=== PATIENT | female | born 1940 | race Caucasian/White ===

== ENCOUNTER 2020-03-05 19:26 | Inpatient (IN) ==
[2020-03-05 20:00] LABS: Mean Platelet Volume 13.6 fL (9.4-12.4)
[2020-03-05 20:02] LABS: Hematocrit 41.2 % (35.3-44.9); Hemoglobin 13.8 g/dL (11.5-15.4); Mean Corpuscular HGB Conc 33.5 g/dL (31.6-35.5); Mean Corpuscular Hemoglobin 30.7 pg (28.0-33.3); Mean Corpuscular Volume 91.6 fL (83.0-100.0); Red Blood Count 4.5 M/mcL (3.82-4.97); Red Cell Distribution Width 14.4 % (11.5-14.5); White Blood Count 18.7 K/mcL (4.3-11.1)
[2020-03-05 20:18] LABS: Calcium 8.6 mg/dL (8.6-10.3); Potassium 3.3 mEq/L (3.5-5.1)
[2020-03-05 20:30] LABS: Bacteria,Urine Many per hpf (None-Few); Bilirubin,Urine Negative (Negative); Blood,Urine Small (Negative); Clarity,Urine Ex.Turbid (Clear); Color,Urine Yellow (Yellow); Glucose,Urine (UA) Normal (Normal); Hyaline Casts,Urine Few per lpf (None Seen); Ketones,Urine Negative (Negative); Leukocyte Esterase,Urine Large (Negative); Mucus,Urine Few per lpf (None-Few); Nitrite,Urine Negative (Negative); Protein,Urine 30 mg/dL (Neg-Trace); Specific Gravity,Urine 1.016 (1.010-1.025); Squamous Epithelial Cell,Urine Moderate per hpf (None-Few); WBC,Urine TNTC per hpf (0-3)
[2020-03-05] MEDS ORDERED: 0.9 % Sodium Chloride 1,000 ML IVC ONE (21:23)
[2020-03-05] MEDS ORDERED: cefTRIAXone 2,000 MG in 0.9 % Sodium Chloride Mini Bag 100 ML IVPB ONE (21:24)
[2020-03-05] MEDS ORDERED: Aspirin 325 MG TABLET PO ONE (21:24)
[2020-03-05] MEDS ORDERED: Ondansetron 4 MG/2 ML VIAL IVP PRN (22:27)
[2020-03-05] MEDS ORDERED: Naloxone 0.4 MG/ML INJ IVP PRN (22:27)
[2020-03-05] MEDS ORDERED: Dextrose Gel 15 GM/37.5 ML TUBE PO PRN ×2 (23:00)
[2020-03-05] MEDS ORDERED: D5% in Water 1,000 ML IVC PRN (23:00)
[2020-03-05] MEDS ORDERED: *HR* Dextrose 50 % in Water (Vial) 50 ML VIAL IVP PRN (23:00)
[2020-03-05] MEDS: 0.9 % Sodium Chloride 1,000 ML IVC SCH (23:38)
[2020-03-05] MEDS: Insulin LISPRO 300 UNITS/3 ML VIAL SQ SCH (23:41)
[2020-03-06] MEDS ORDERED: Perflutren Lipid Microsphere 1.3 ML in 0.9 % Sodium Chloride 8.7 ML IVP PRN (01:40)
[2020-03-06 02:53] LABS: INR 1.3; Prothrombin Time 14.6 Seconds (9.4-12.1)
[2020-03-06 02:55] LABS: Eosinophils % 0.1 %; Red Cell Distribution Width 14.6 % (11.5-14.5)
[2020-03-06 02:57] LABS: Basophils % 0.2 %; Hematocrit 40.8 % (35.3-44.9); Hemoglobin 13.6 g/dL (11.5-15.4); Immature Granulocytes % 0.8 % (0-4); Immature Platelets 13.2 % (1.1-6.1); Lymphocytes # 1.7 K/mcL (0.6-4.6); Lymphocytes % 9.4 %; Mean Corpuscular HGB Conc 33.3 g/dL (31.6-35.5); Mean Corpuscular Hemoglobin 31.3 pg (28.0-33.3); Monocytes # 0.4 K/mcL (0.0-1.3); Monocytes % 2.3 %; Red Blood Count 4.34 M/mcL (3.82-4.97); Segmented Neutrophils % 87.2 %; White Blood Count 18.4 K/mcL (4.3-11.1)
[2020-03-06 03:10] LABS: Platelet Count 79 K/mcL (140-400)
[2020-03-06 03:11] LABS: Bilirubin,Total 2.4 mg/dL (0.3-1.0); Calcium 8.3 mg/dL (8.6-10.3); Chol/HDL Ratio 5.4 (0-4.9); Globulin 3.1 g/dL (2.4-3.5); Magnesium 1.4 mg/dL (1.6-2.6); Phosphorous 3.2 mg/dL (2.7-4.5); Potassium 3.5 mEq/L (3.5-5.1); Total Protein 6.1 g/dL (6.4-8.9)
[2020-03-06] MEDS ORDERED: *HR* Heparin 5,000 UNIT/ML VIAL IVP ONE (04:05)
[2020-03-06] MEDS ORDERED: *HR* Heparin 5,000 UNIT/ML VIAL IVP PRN ×2 (04:05)
[2020-03-06] MEDS ORDERED: Heparin 25,000UNIT/250ML 1/2NS 25,000 UNIT/250 ML IV.SOLN IVC SCH (04:15)
[2020-03-06 05:19] LABS: INR 1.3; Prothrombin Time 14.6 Seconds (9.4-12.1)
[2020-03-06 05:20] LABS: Heparin anti-factor XA UFH < 0.04 IU/mL (0.30-0.70)
[2020-03-06 07:49] LABS: Hemoglobin 13.3 g/dL (11.5-15.4); Red Cell Distribution Width 14.7 % (11.5-14.5)
[2020-03-06 07:50] LABS: Hematocrit 39.3 % (35.3-44.9); Immature Platelets 17.4 % (1.1-6.1); Mean Corpuscular HGB Conc 33.8 g/dL (31.6-35.5); Mean Corpuscular Volume 91.6 fL (83.0-100.0); Red Blood Count 4.29 M/mcL (3.82-4.97); White Blood Count 22.6 K/mcL (4.3-11.1)
[2020-03-06 07:52] LABS: Platelet Count 60 K/mcL (140-400)
[2020-03-06] MEDS: cefTRIAXone 1,000 MG in 0.9 % Sodium Chloride Mini Bag 100 ML IVPB SCH (09:01)
[2020-03-06] MEDS: Acetaminophen 325 MG TABLET PO PRN ×3 (09:08→22:39)
[2020-03-06] MEDS: Insulin LISPRO 300 UNITS/3 ML VIAL SQ SCH ×3 (09:08→16:27)
[2020-03-06 09:16] LABS: Acinetobacter baumannii by PCR Not Detected (Not Detect); Candida albicans by PCR Not Detected (Not Detect); Candida glabrata by PCR Not Detected (Not Detect); Candida krusei by PCR Not Detected (Not Detect); Candida parapsilosis by PCR Not Detected (Not Detect); Candida tropicalis by PCR Not Detected (Not Detect); Enterobacter cloacae Cmplx PCR Not Detected (Not Detect); Enterococcus by PCR Not Detected (Not Detect); Escherichia coli by PCR DETECTED (Not Detect); Klebsiella oxytoca by PCR Not Detected (Not Detect); Klebsiella pneumoniae by PCR Not Detected (Not Detect); Proteus by PCR Not Detected (Not Detect); Pseudomonas aeruginosa by PCR Not Detected (Not Detect); Serratia marcescens by PCR Not Detected (Not Detect); Staphylococcus aureus by PCR Not Detected (Not Detect); Staphylococcus by PCR Not Detected (Not Detect); Streptococcus agalactiae(B)PCR Not Detected (Not Detect); Streptococcus by PCR Not Detected (Not Detect); Streptococcus pneumoniae PCR Not Detected (Not Detect); Streptococcus pyogenes (A) PCR Not Detected (Not Detect); blaKPC Carbapenem-Resist Gene Not Detected (Not Detect)
[2020-03-06 12:36] LABS: Hepatitis B Surface Antigen Nonreactive (Nonreactive)
[2020-03-06 13:04] LABS: Hepatitis B Core IgM Nonreactive (Nonreactive)
[2020-03-06 13:05] LABS: Hepatitis A Antibody IgM Nonreactive (Nonreactive); Hepatitis C Virus Antibody Nonreactive (Nonreactive)
[2020-03-06] MEDS: 0.9 % Sodium Chloride 1,000 ML IVC SCH (15:45)
[2020-03-07] MEDS: Acetaminophen 325 MG TABLET PO PRN ×3 (05:32→19:49)
[2020-03-07 06:56] LABS: Hematocrit 38.2 % (35.3-44.9); Hemoglobin 12.6 g/dL (11.5-15.4); Immature Platelets 12.4 % (1.1-6.1); Mean Corpuscular Hemoglobin 31.4 pg (28.0-33.3); Mean Corpuscular Volume 95.3 fL (83.0-100.0); Mean Platelet Volume 13.4 fL (9.4-12.4); Red Blood Count 4.01 M/mcL (3.82-4.97); Red Cell Distribution Width 14.8 % (11.5-14.5); White Blood Count 9.3 K/mcL (4.3-11.1)
[2020-03-07 07:12] LABS: Albumin 2.5 g/dL (3.5-5.7); Albumin/Globulin Ratio 0.9 (1.1-2.2); Bilirubin,Total 1.7 mg/dL (0.3-1.0); Calcium 7.9 mg/dL (8.6-10.3); Globulin 2.8 g/dL (2.4-3.5); Potassium 3.5 mEq/L (3.5-5.1); Total Protein 5.3 g/dL (6.4-8.9)
[2020-03-07] MEDS: cefTRIAXone 1,000 MG in 0.9 % Sodium Chloride Mini Bag 100 ML IVPB SCH (08:33)
[2020-03-07] MEDS: Insulin LISPRO 300 UNITS/3 ML VIAL SQ SCH ×3 (08:49→16:31)
[2020-03-07] MEDS ORDERED: *HR* Metoprolol 5 MG/5 ML VIAL IVP ONE (20:45)
[2020-03-08 03:22] LABS: Hemoglobin 13.3 g/dL (11.5-15.4); Mean Corpuscular Volume 95.3 fL (83.0-100.0); Red Cell Distribution Width 14.8 % (11.5-14.5)
[2020-03-08 03:24] LABS: Immature Platelets 9.8 % (1.1-6.1); Mean Corpuscular HGB Conc 32.4 g/dL (31.6-35.5); Mean Corpuscular Hemoglobin 30.9 pg (28.0-33.3); Mean Platelet Volume 13.5 fL (9.4-12.4); Red Blood Count 4.3 M/mcL (3.82-4.97); White Blood Count 7.8 K/mcL (4.3-11.1)
[2020-03-08] MEDS ORDERED: *HR* Metoprolol 5 MG/5 ML VIAL IVP ONE (03:35)
[2020-03-08] MEDS ORDERED: Acetaminophen IV 1,000 MG/100 ML INFUS..BTL IVPB ONE (03:36)
[2020-03-08 03:41] LABS: Albumin 2.7 g/dL (3.5-5.7); Albumin/Globulin Ratio 0.8 (1.1-2.2); Bilirubin,Total 1.8 mg/dL (0.3-1.0); Calcium 8.3 mg/dL (8.6-10.3); Globulin 3.3 g/dL (2.4-3.5); Potassium 3.8 mEq/L (3.5-5.1)
[2020-03-08] MEDS: Insulin LISPRO 300 UNITS/3 ML VIAL SQ SCH ×3 (07:31→16:47)
[2020-03-08] MEDS: cefTRIAXone 1,000 MG in 0.9 % Sodium Chloride Mini Bag 100 ML IVPB SCH (09:22)
[2020-03-08] MEDS ORDERED: Acetaminophen 325 MG TABLET PO ONE (15:35)
[2020-03-09] MEDS ORDERED: Acetaminophen 325 MG TABLET PO ONE (04:26)
[2020-03-09 04:51] LABS: Mean Corpuscular Hemoglobin 30.1 pg (28.0-33.3)
[2020-03-09 04:52] LABS: Hematocrit 37.9 % (35.3-44.9); Hemoglobin 12.3 g/dL (11.5-15.4); Immature Platelets 7.3 % (1.1-6.1); Mean Corpuscular HGB Conc 32.5 g/dL (31.6-35.5); Mean Corpuscular Volume 92.9 fL (83.0-100.0); Mean Platelet Volume 12.1 fL (9.4-12.4); Red Blood Count 4.08 M/mcL (3.82-4.97); Red Cell Distribution Width 14.7 % (11.5-14.5); White Blood Count 7.1 K/mcL (4.3-11.1)
[2020-03-09 05:11] LABS: Alanine Aminotransferase 23 Units/L (7-52); Albumin 2.4 g/dL (3.5-5.7); Albumin/Globulin Ratio 0.9 (1.1-2.2); Alkaline Phosphatase 146 Units/L (34-104); Aspartate Amino Transferase 44 Units/L (13-39); BUN/Creatinine Ratio 21 (6-26); Bilirubin,Total 1.3 mg/dL (0.3-1.0); Blood Urea Nitrogen 21 mg/dL (8-23); Calcium 7.7 mg/dL (8.6-10.3); Carbon Dioxide 20 mEq/L (23-29); Chloride 108 mEq/L (98-107); Globulin 2.6 g/dL (2.4-3.5); Glucose 123 mg/dL (70-105); Osmolality,Calculated 286 (280-300); Potassium 3.6 mEq/L (3.5-5.1); Sodium 136 mEq/L (136-145); eGFR For African Americans > 60 (> 60); eGFR For Non-African Americans 55 (> 60)
[2020-03-09] MEDS: Insulin LISPRO 300 UNITS/3 ML VIAL SQ SCH ×2 (09:22→12:09)
[2020-03-09] MEDS: cefTRIAXone 1,000 MG in 0.9 % Sodium Chloride Mini Bag 100 ML IVPB SCH (09:25)
[2020-03-09 11:43] VITALS: BP 139/72
== END 2020-03-09 14:25 | disposition home or self-care (01) | DRG 689 ==
LOC: 3BNU 19:26 → EMEROOARM 19:26 → SUATTDRO 21:45 → 3BNU 22:23
PROVIDERS: ADMIT Internal Medicine; ATTEND Nurse Practitioner Adult Health

== ENCOUNTER 2021-01-24 21:37 | Inpatient (IN) ==
[2021-01-24 22:38] LABS: Eosinophils % 0.1 %; Immature Granulocytes % 0.4 % (0-4); Segmented Neutrophils % 82.4 %
[2021-01-24 22:40] LABS: Bacteria,Urine Few per hpf (None-Few); Basophils # 0.1 K/mcL (0.0-0.2); Basophils % 0.5 %; Bilirubin,Urine Negative (Negative); Blood,Urine Small (Negative); Clarity,Urine Turbid (Clear); Color,Urine Yellow (Yellow); Glucose,Urine (UA) 50 mg/dL (Normal); Hemoglobin 12.4 g/dL (11.5-15.4); Immature Platelets 8.9 % (1.1-6.1); Ketones,Urine Negative (Negative); Leukocyte Esterase,Urine Large (Negative); Lymphocytes # 1.1 K/mcL (0.6-4.6); Lymphocytes % 11.2 %; Mean Corpuscular HGB Conc 32.6 g/dL (31.6-35.5); Monocytes # 0.5 K/mcL (0.0-1.3); Monocytes % 5.4 %; Mucus,Urine Few per lpf (None-Few); Nitrite,Urine Positive (Negative); Protein,Urine 30 mg/dL (Neg-Trace); Red Cell Distribution Width 14.4 % (11.5-14.5); Specific Gravity,Urine 1.019 (1.010-1.025); Squamous Epithelial Cell,Urine Few per hpf (None-Few); Urobilinogen,Urine Normal (Normal); WBC,Urine TNTC per hpf (0-3); White Blood Count 9.4 K/mcL (4.3-11.1)
[2021-01-24 22:41] LABS: Neutrophils # 7.8 K/mcL (1.6-8.9); Platelet Count 89 K/mcL (140-400)
[2021-01-24 22:46] LABS: INR 1.2; Prothrombin Time 14.3 Seconds (9.4-12.1)
[2021-01-24 22:48] LABS: Activated Partial Thrombo Time 29.8 Seconds (26.0-36.0)
[2021-01-24 23:05] LABS: Albumin 3.2 g/dL (3.5-5.7); Bilirubin,Direct 1.3 mg/dL (0.0-0.2); Bilirubin,Indirect 1.5 mg/dL (0.0-1.0); Bilirubin,Total 2.8 mg/dL (0.3-1.0); Calcium 8.9 mg/dL (8.6-10.3); Globulin 3.3 g/dL (2.4-3.5); Magnesium 1.4 mg/dL (1.6-2.6); Phosphorous 2.6 mg/dL (2.7-4.5); Potassium 3.8 mEq/L (3.5-5.1); Total Protein 6.5 g/dL (6.4-8.9); Troponin I 0.03 ng/mL (< 0.04)
[2021-01-24] MEDS ORDERED: Vancomycin 1,750 MG/517.5 ML IV.SOLN IVPB ONE (23:18)
[2021-01-24] MEDS ORDERED: Piperacillin/Tazobactam 3.375 GM in 0.9 % Sodium Chloride Mini Bag 100 ML IVPB ONE (23:19)
[2021-01-24] MEDS ORDERED: 0.9 % Sodium Chloride 1,000 ML IVC ONE (23:26)
[2021-01-25] MEDS ORDERED: 0.9 % Sodium Chloride 1,000 ML IVC SCH (03:00)
[2021-01-25] MEDS ORDERED: Acetaminophen IV 1,000 MG/100 ML BAG IVPB SCH (03:03)
[2021-01-25] MEDS ORDERED: *HR* Dextrose 50 % in Water (Vial) 50 ML VIAL IVP PRN (03:10)
[2021-01-25] MEDS ORDERED: D5% in Water 1,000 ML IVC PRN (03:10)
[2021-01-25] MEDS ORDERED: Dextrose Gel 15 GM/37.5 ML TUBE PO PRN ×2 (03:10)
[2021-01-25] MEDS ORDERED: Naloxone 0.4 MG/ML INJ IVP PRN (03:11)
[2021-01-25] MEDS ORDERED: Ondansetron 4 MG/2 ML VIAL IVP PRN (03:11)
[2021-01-25] MEDS: Melatonin 3 MG TABLET PO SCH ×2 (04:51→21:25)
[2021-01-25] MEDS ORDERED: cefTRIAXone 1,000 MG in 0.9 % Sodium Chloride Mini Bag 100 ML IVPB SCH (06:00)
[2021-01-25 06:08] LABS: Hematocrit 40.5 % (35.3-44.9); Hemoglobin 12.9 g/dL (11.5-15.4); Immature Platelets 9.4 % (1.1-6.1); Mean Corpuscular HGB Conc 31.9 g/dL (31.6-35.5); Mean Corpuscular Hemoglobin 30.8 pg (28.0-33.3); Mean Corpuscular Volume 96.7 fL (83.0-100.0); Mean Platelet Volume 12.8 fL (9.4-12.4); Red Blood Count 4.19 M/mcL (3.82-4.97); Red Cell Distribution Width 14.5 % (11.5-14.5); White Blood Count 13.7 K/mcL (4.3-11.1)
[2021-01-25 06:42] LABS: Calcium 8.6 mg/dL (8.6-10.3); Chol/HDL Ratio 3.9 (0-4.9); Potassium 3.6 mEq/L (3.5-5.1)
[2021-01-25] MEDS ORDERED: Aspirin 325 MG TABLET PO ONE (07:27)
[2021-01-25] MEDS: amLODIPine 5 MG TABLET PO SCH (07:33)
[2021-01-25] MEDS: Magnesium Oxide 400 MG TABLET PO SCH ×2 (07:34→21:25)
[2021-01-25] MEDS: Insulin LISPRO 300 UNITS/3 ML VIAL SUBQ SCH ×4 (07:37→21:24)
[2021-01-25] MEDS: Fluticasone Propionate Nasal 50 MCG/SPRAY BOTTLE NS SCH (07:38)
[2021-01-25] MEDS ORDERED: hydroCHLOROthiazide 25 MG TABLET PO SCH (09:00)
[2021-01-25 09:36] LABS: Estimated Average Glucose 117 mg/dl; Hemoglobin A1C 5.7 %
[2021-01-25] MEDS ORDERED: *HR* Heparin 5,000 UNIT/ML VIAL IVP PRN ×2 (12:00)
[2021-01-25] MEDS ORDERED: *HR* Heparin 5,000 UNIT/ML VIAL IVP ONE (12:00)
[2021-01-25] MEDS: Heparin 25,000UNIT/250ML 1/2NS 25,000 UNIT/250 ML IV.SOLN IVC SCH (13:14)
[2021-01-25 13:31] LABS: Hematocrit 41.9 % (35.3-44.9); Hemoglobin 13.1 g/dL (11.5-15.4); Immature Platelets 8.8 % (1.1-6.1); Mean Corpuscular HGB Conc 31.3 g/dL (31.6-35.5); Mean Corpuscular Volume 99.1 fL (83.0-100.0); Mean Platelet Volume 13.2 fL (9.4-12.4); Red Blood Count 4.23 M/mcL (3.82-4.97); Red Cell Distribution Width 14.6 % (11.5-14.5); White Blood Count 11.3 K/mcL (4.3-11.1)
[2021-01-25 13:41] LABS: Heparin anti-factor XA UFH < 0.04 IU/mL (0.30-0.70)
[2021-01-25 13:42] LABS: INR 1.3; Prothrombin Time 14.4 Seconds (9.4-12.1)
[2021-01-25] MEDS: Acetaminophen 325 MG TABLET PO PRN (14:05)
[2021-01-25] MEDS ORDERED: Perflutren Lipid Microsphere 1.3 ML in 0.9 % Sodium Chloride 8.7 ML IVP PRN (15:13)
[2021-01-25 20:07] LABS: Acinetobacter baumannii by PCR Not Detected (Not Detect); Enterobacter cloacae Cmplx PCR Not Detected (Not Detect); Enterobacteriaceae by PCR Not Detected (Not Detect); Enterococcus by PCR Not Detected (Not Detect); Staphylococcus aureus by PCR Not Detected (Not Detect); Staphylococcus by PCR Not Detected (Not Detect); Streptococcus agalactiae(B)PCR Not Detected (Not Detect); Streptococcus by PCR Not Detected (Not Detect); Streptococcus pneumoniae PCR Not Detected (Not Detect); Streptococcus pyogenes (A) PCR Not Detected (Not Detect); mecA Methicillin-Resist Gene Not Detected (Not Detect); vanA/B Vancomycin-Resist Genes Not Detected (Not Detect)
[2021-01-25 20:08] LABS: Candida albicans by PCR Not Detected (Not Detect); Candida glabrata by PCR Not Detected (Not Detect); Candida krusei by PCR Not Detected (Not Detect); Candida parapsilosis by PCR Not Detected (Not Detect); Candida tropicalis by PCR Not Detected (Not Detect); Escherichia coli by PCR DETECTED (Not Detect); Klebsiella oxytoca by PCR Not Detected (Not Detect); Klebsiella pneumoniae by PCR Not Detected (Not Detect); Proteus by PCR Not Detected (Not Detect); Pseudomonas aeruginosa by PCR Not Detected (Not Detect); Serratia marcescens by PCR Not Detected (Not Detect)
[2021-01-25] MEDS ORDERED: NON-FORMULARY MEDICATION 1 EACH EACH (Melatonin 10 MG Tablet) PO SCH (21:00)
[2021-01-26 05:08] LABS: Hematocrit 35.2 % (35.3-44.9); Hemoglobin 11.5 g/dL (11.5-15.4); Immature Platelets 10.8 % (1.1-6.1); Mean Corpuscular HGB Conc 32.7 g/dL (31.6-35.5); Mean Corpuscular Hemoglobin 30.8 pg (28.0-33.3); Mean Corpuscular Volume 94.4 fL (83.0-100.0); Mean Platelet Volume 13.1 fL (9.4-12.4); Red Blood Count 3.73 M/mcL (3.82-4.97); Red Cell Distribution Width 14.4 % (11.5-14.5); White Blood Count 8.2 K/mcL (4.3-11.1)
[2021-01-26 05:18] LABS: Calcium 8.2 mg/dL (8.6-10.3); Potassium 3.8 mEq/L (3.5-5.1)
[2021-01-26] MEDS ORDERED: cefTRIAXone 2,000 MG in Water for inj. (sterile) 20 ML IVP SCH (08:00)
[2021-01-26 08:08] LABS: Troponin I 4.76 ng/mL (< 0.04)
[2021-01-26] MEDS ORDERED: Piperacillin/Tazobactam 4.5 GM in 0.9 % Sodium Chloride Mini Bag 100 ML IVPB ONE (08:19)
[2021-01-26] MEDS: Insulin LISPRO 300 UNITS/3 ML VIAL SUBQ SCH ×4 (08:29→21:44)
[2021-01-26] MEDS: Aspirin 81 MG TAB.CHEW PO SCH (08:36)
[2021-01-26] MEDS: amLODIPine 5 MG TABLET PO SCH (08:36)
[2021-01-26] MEDS: Fluticasone Propionate Nasal 50 MCG/SPRAY BOTTLE NS SCH (08:37)
[2021-01-26] MEDS ORDERED: cefTRIAXone 1,000 MG in 0.9 % Sodium Chloride Mini Bag 100 ML IVPB SCH (09:00)
[2021-01-26] MEDS: Piperacillin/Tazobactam 3.375 GM in 0.9 % Sodium Chloride Mini Bag 100 ML IVPB SCH ×3 (09:11→23:21)
[2021-01-26] MEDS: Heparin 25,000UNIT/250ML 1/2NS 25,000 UNIT/250 ML IV.SOLN IVC SCH (13:01)
[2021-01-26] MEDS ORDERED: Piperacillin/Tazobactam 3.375 GM in 0.9 % Sodium Chloride Mini Bag 100 ML IVPB SCH (16:00)
[2021-01-26] MEDS: Acetaminophen 325 MG TABLET PO PRN (16:09)
[2021-01-26] MEDS: Melatonin 3 MG TABLET PO SCH (21:48)
[2021-01-27] MEDS: Insulin LISPRO 300 UNITS/3 ML VIAL SUBQ SCH ×4 (07:45→20:37)
[2021-01-27] MEDS: amLODIPine 5 MG TABLET PO SCH (07:58)
[2021-01-27] MEDS: Aspirin 81 MG TAB.CHEW PO SCH (08:00)
[2021-01-27] MEDS: Piperacillin/Tazobactam 3.375 GM in 0.9 % Sodium Chloride Mini Bag 100 ML IVPB SCH ×2 (08:00→16:47)
[2021-01-27] MEDS: Fluticasone Propionate Nasal 50 MCG/SPRAY BOTTLE NS SCH (08:01)
[2021-01-27 10:04] LABS: Immature Granulocytes % 0.3 % (0-4); Red Cell Distribution Width 14.5 % (11.5-14.5)
[2021-01-27 10:06] LABS: Basophils # 0.1 K/mcL (0.0-0.2); Basophils % 0.9 %; Eosinophils # 0.1 K/mcL (0.0-0.6); Hematocrit 36.9 % (35.3-44.9); Hemoglobin 11.9 g/dL (11.5-15.4); Immature Platelets 12.1 % (1.1-6.1); Lymphocytes # 1.3 K/mcL (0.6-4.6); Lymphocytes % 19.3 %; Mean Corpuscular HGB Conc 32.2 g/dL (31.6-35.5); Mean Corpuscular Hemoglobin 30.7 pg (28.0-33.3); Mean Corpuscular Volume 95.1 fL (83.0-100.0); Mean Platelet Volume 13.5 fL (9.4-12.4); Monocytes # 0.9 K/mcL (0.0-1.3); Monocytes % 13.1 %; Neutrophils # 4.2 K/mcL (1.6-8.9); Red Blood Count 3.88 M/mcL (3.82-4.97); Segmented Neutrophils % 64.4 %; White Blood Count 6.5 K/mcL (4.3-11.1)
[2021-01-27 10:10] LABS: Platelet Count 81 K/mcL (140-400)
[2021-01-27 10:24] LABS: Calcium 8.1 mg/dL (8.6-10.3); Magnesium 1.6 mg/dL (1.6-2.6); Phosphorous 2.3 mg/dL (2.7-4.5); Potassium 3.7 mEq/L (3.5-5.1)
[2021-01-27 10:48] LABS: Platelet Estimate Decreased (Normal); Reactive Lymphocytes Present (Not Present)
[2021-01-27] MEDS: Heparin 25,000UNIT/250ML 1/2NS 25,000 UNIT/250 ML IV.SOLN IVC SCH (15:38)
[2021-01-27] MEDS: Calcium Gluconate 1gm/50mL 1 GM/50 ML BAG IVPB SCH ×2 (15:51→16:46)
[2021-01-27] MEDS: Melatonin 3 MG TABLET PO SCH (20:45)
[2021-01-28] MEDS: Piperacillin/Tazobactam 3.375 GM in 0.9 % Sodium Chloride Mini Bag 100 ML IVPB SCH ×2 (00:06→08:19)
[2021-01-28 01:17] LABS: Hemoglobin 10.9 g/dL (11.5-15.4)
[2021-01-28 01:19] LABS: Hematocrit 33.9 % (35.3-44.9); Immature Platelets 10.1 % (1.1-6.1); Mean Corpuscular HGB Conc 32.2 g/dL (31.6-35.5); Mean Corpuscular Hemoglobin 30.6 pg (28.0-33.3); Mean Corpuscular Volume 95.2 fL (83.0-100.0); Mean Platelet Volume 13.1 fL (9.4-12.4); Red Blood Count 3.56 M/mcL (3.82-4.97); Red Cell Distribution Width 14.6 % (11.5-14.5); White Blood Count 6.2 K/mcL (4.3-11.1)
[2021-01-28 01:47] LABS: Calcium 7.9 mg/dL (8.6-10.3); Phosphorous 3.5 mg/dL (2.7-4.5); Potassium 3.9 mEq/L (3.5-5.1)
[2021-01-28] MEDS: Insulin LISPRO 300 UNITS/3 ML VIAL SUBQ SCH ×4 (08:12→22:26)
[2021-01-28] MEDS: Calcium Gluconate 1gm/50mL 1 GM/50 ML BAG IVPB SCH ×2 (08:17→12:00)
[2021-01-28] MEDS: 0.9 % Sodium Chloride 1,000 ML IVC SCH (08:17)
[2021-01-28] MEDS: Aspirin 81 MG TAB.CHEW PO SCH (08:19)
[2021-01-28] MEDS: amLODIPine 5 MG TABLET PO SCH (08:20)
[2021-01-28] MEDS: Fluticasone Propionate Nasal 50 MCG/SPRAY BOTTLE NS SCH (08:21)
[2021-01-28] MEDS ORDERED: ISOVUE-370 200 ML INFUS..BTL ONE (11:59)
[2021-01-28] MEDS ORDERED: *HR* Heparin 10,000 UNIT/10 ML VIAL ONE (11:59)
[2021-01-28] MEDS ORDERED: Heparin 1,000 UNITS/500 mL 500 ML ONE (11:59)
[2021-01-28] MEDS ORDERED: Nitroglycerin 1,000 MCG/5 ML VIAL IV ONE (12:00)
[2021-01-28] MEDS ORDERED: 0.9 % Sodium Chloride 1,000 ML ONE (12:00)
[2021-01-28] MEDS ORDERED: *HR* FentaNYL (PF) 100 MCG/2 ML VIAL ONE (12:37)
[2021-01-28] MEDS ORDERED: *HR* Midazolam HCl 2 MG/2 ML VIAL ONE (12:38)
[2021-01-28] MEDS ORDERED: 0.9 % Sodium Chloride 1,000 ML IVC SCH (14:30)
[2021-01-28] MEDS: Heparin 25,000UNIT/250ML 1/2NS 25,000 UNIT/250 ML IV.SOLN IVC SCH (14:42)
[2021-01-28] MEDS ORDERED: levoFLOXacin 750 MG TABLET PO SCH (15:00)
[2021-01-28] MEDS: Melatonin 3 MG TABLET PO SCH (22:32)
[2021-01-28] MEDS: Lactobacillus 1 EACH CAP.SPRINK PO SCH (22:32)
[2021-01-29 01:26] LABS: Mean Corpuscular Volume 98.9 fL (83.0-100.0); Red Cell Distribution Width 14.9 % (11.5-14.5)
[2021-01-29 01:28] LABS: Hematocrit 36.9 % (35.3-44.9); Hemoglobin 11.4 g/dL (11.5-15.4); Immature Platelets 6.9 % (1.1-6.1); Mean Corpuscular HGB Conc 30.9 g/dL (31.6-35.5); Mean Corpuscular Hemoglobin 30.6 pg (28.0-33.3); Red Blood Count 3.73 M/mcL (3.82-4.97); White Blood Count 4.3 K/mcL (4.3-11.1)
[2021-01-29 01:46] LABS: Calcium 8.2 mg/dL (8.6-10.3); Magnesium 1.8 mg/dL (1.6-2.6); Phosphorous 3.5 mg/dL (2.7-4.5); Potassium 3.7 mEq/L (3.5-5.1)
[2021-01-29] MEDS ORDERED: Furosemide 40 MG TABLET PO SCH (09:00)
[2021-01-29] MEDS: Insulin LISPRO 300 UNITS/3 ML VIAL SUBQ SCH (09:08)
[2021-01-29] MEDS: 0.9 % Sodium Chloride 1,000 ML IVC SCH (09:08)
[2021-01-29] MEDS: Aspirin 81 MG TAB.CHEW PO SCH (09:09)
[2021-01-29] MEDS: Lactobacillus 1 EACH CAP.SPRINK PO SCH (09:09)
[2021-01-29] MEDS: amLODIPine 5 MG TABLET PO SCH (09:09)
[2021-01-29] MEDS: Fluticasone Propionate Nasal 50 MCG/SPRAY BOTTLE NS SCH (09:10)
[2021-01-29] MEDS: Calcium Gluconate 1gm/50mL 1 GM/50 ML BAG IVPB SCH ×2 (09:11→12:00)
[2021-01-29 09:27] VITALS: BP 128/60; PULSE 66; TEMP 97.7; O2SAT 97
== END 2021-01-29 14:19 | disposition home health service (06) | DRG 871 ==
LOC: 3ANU 21:37 → EMEROOARM 21:37 → SUATTDRO 01-25 02:25 → 3ANU 01-25 03:00 → SUATTDRO 01-26 22:40
PROVIDERS: ADMIT Student in an Organized Health Care Education/Training Program; ATTEND Internal Medicine

== ENCOUNTER 2022-02-09 14:32 | Inpatient (IN) ==
[2022-02-09 17:20] LABS: Basophils # 0.1 K/mcL (0.0-0.2); Basophils % 1.3 %; Eosinophils # 0.5 K/mcL (0.0-0.6); Eosinophils % 4.6 %; Hematocrit 39.3 % (35.3-44.9); Hemoglobin 12.8 g/dL (11.5-15.4); Immature Granulocytes % 0.3 % (0-4); Lymphocytes # 2.6 K/mcL (0.6-4.6); Mean Corpuscular HGB Conc 32.6 g/dL (31.6-35.5); Mean Corpuscular Hemoglobin 30.1 pg (28.0-33.3); Mean Corpuscular Volume 92.5 fL (83.0-100.0); Mean Platelet Volume 12.7 fL (9.4-12.4); Monocytes # 1.2 K/mcL (0.0-1.3); Monocytes % 11.7 %; Neutrophils # 5.9 K/mcL (1.6-8.9); Platelet Count 127 K/mcL (140-400); Red Blood Count 4.25 M/mcL (3.82-4.97); Red Cell Distribution Width 17.2 % (11.5-14.5); Segmented Neutrophils % 57.1 %; White Blood Count 10.3 K/mcL (4.3-11.1)
[2022-02-09 17:27] LABS: Amorphous Sediment,Urine Few per hpf (None-Few); Bacteria,Urine Few per hpf (None-Few); Bilirubin,Urine Negative (Negative); Blood,Urine Large (Negative); Clarity,Urine Turbid (Clear); Color,Urine Dark-Yellow (Yellow); Glucose,Urine (UA) Normal (Normal); Granular Casts,Urine Few per lpf (None Seen); Hyaline Casts,Urine Few per lpf (None Seen); Ketones,Urine Negative (Negative); Leukocyte Esterase,Urine Large (Negative); Mucus,Urine Few per lpf (None-Few); Nitrite,Urine Negative (Negative); Protein,Urine 100 mg/dL (Neg-Trace); RBC,Urine 30-50 per hpf (0-3); Renal Epithelial Cells,Urine Few per hpf (None-Few); Specific Gravity,Urine 1.024 (1.010-1.025); Squamous Epithelial Cell,Urine Few per hpf (None-Few); Transitional Epi Cells,Urine Few per hpf (None-Few); Urobilinogen,Urine Normal (Normal); WBC,Urine TNTC per hpf (0-3)
[2022-02-09 17:37] LABS: Calcium 9.4 mg/dL (8.6-10.3); Potassium 3.9 mEq/L (3.5-5.1)
[2022-02-09 17:57] LABS: Troponin I 0.05 ng/mL (< 0.04)
[2022-02-09] MEDS ORDERED: cefTRIAXone 1,000 MG in Water for inj. (sterile) 10 ML IVP ONE (18:17)
[2022-02-09] MEDS ORDERED: Melatonin 3 MG TABLET PO PRN (20:55)
[2022-02-09] MEDS ORDERED: Naloxone 0.4 MG/ML INJ IVP PRN (20:55)
[2022-02-09] MEDS ORDERED: D5% in Water 1,000 ML IVC PRN (21:52)
[2022-02-09] MEDS ORDERED: Dextrose Gel 15 GM/37.5 ML TUBE PO PRN ×2 (21:52)
[2022-02-09] MEDS ORDERED: *HR* Dextrose 50 % in Water (Syg) 50 ML SYRINGE IVP PRN (21:52)
[2022-02-09 22:36] LABS: Magnesium 1.5 mg/dL (1.6-2.6)
[2022-02-09 22:50] LABS: Thyroid Stimulating Hormone 3.996 mcIU/mL (0.340-5.600)
[2022-02-09] MEDS: Insulin LISPRO 300 UNITS/3 ML VIAL SUBQ SCH (23:57)
[2022-02-10 00:44] LABS: Sodium, Urine 64.6 mEq/L
[2022-02-10] MEDS: Ampicillin 1,000 MG in 0.9 % Sodium Chloride Mini Bag 100 ML IVPB SCH ×7 (01:44→23:12)
[2022-02-10 03:50] LABS: Basophils # 0.1 K/mcL (0.0-0.2); Basophils % 1.3 %; Eosinophils # 0.5 K/mcL (0.0-0.6); Eosinophils % 5.1 %; Hematocrit 37.5 % (35.3-44.9); Hemoglobin 12.2 g/dL (11.5-15.4); Immature Granulocytes % 0.2 % (0-4); Immature Platelets 7.6 % (1.1-6.1); Lymphocytes # 2.6 K/mcL (0.6-4.6); Lymphocytes % 27.7 %; Mean Corpuscular HGB Conc 32.5 g/dL (31.6-35.5); Mean Corpuscular Hemoglobin 29.9 pg (28.0-33.3); Mean Corpuscular Volume 91.9 fL (83.0-100.0); Mean Platelet Volume 13.3 fL (9.4-12.4); Monocytes # 0.8 K/mcL (0.0-1.3); Monocytes % 8.7 %; Neutrophils # 5.4 K/mcL (1.6-8.9); Platelet Count 111 K/mcL (140-400); Red Blood Count 4.08 M/mcL (3.82-4.97); Red Cell Distribution Width 16.9 % (11.5-14.5); White Blood Count 9.5 K/mcL (4.3-11.1)
[2022-02-10 04:04] LABS: Albumin 2.6 g/dL (3.5-5.7); Albumin/Globulin Ratio 0.7 (1.1-2.2); Bilirubin,Total 2.3 mg/dL (0.3-1.0); Calcium 9.3 mg/dL (8.6-10.3); Globulin 3.8 g/dL (2.4-3.5); Potassium 3.9 mEq/L (3.5-5.1); Total Protein 6.4 g/dL (6.4-8.9)
[2022-02-10] MEDS ORDERED: *HR* Heparin 5,000 UNIT/ML VIAL SQ SCH (06:00)
[2022-02-10] MEDS: Lactobacillus 1 EACH CAP.SPRINK PO SCH ×2 (08:47→20:29)
[2022-02-10] MEDS: Insulin LISPRO 300 UNITS/3 ML VIAL SUBQ SCH ×4 (08:47→20:29)
[2022-02-10] MEDS: Aspirin Enteric Coated 81 MG Tablet PO SCH (08:47)
[2022-02-10] MEDS: 0.9 % Sodium Chloride 1,000 ML IVC SCH ×2 (08:55→23:12)
[2022-02-10] MEDS ORDERED: Spironolactone 25 MG TABLET PO SCH (09:00)
[2022-02-10] MEDS ORDERED: *HR* Heparin 5,000 UNIT/ML VIAL IVP ONE (10:08)
[2022-02-10] MEDS ORDERED: *HR* Heparin 5,000 UNIT/ML VIAL IVP PRN ×2 (10:08)
[2022-02-10] MEDS: Heparin 25,000UNIT/250ML 1/2NS 25,000 UNIT/250 ML IV.SOLN IVC SCH (11:23)
[2022-02-10 11:34] LABS: Hematocrit 34.2 % (35.3-44.9); Hemoglobin 11.4 g/dL (11.5-15.4); Immature Platelets 6.8 % (1.1-6.1); Mean Corpuscular HGB Conc 33.3 g/dL (31.6-35.5); Mean Corpuscular Hemoglobin 30.5 pg (28.0-33.3); Mean Corpuscular Volume 91.4 fL (83.0-100.0); Mean Platelet Volume 12.5 fL (9.4-12.4); Red Blood Count 3.74 M/mcL (3.82-4.97); White Blood Count 7.5 K/mcL (4.3-11.1)
[2022-02-10 12:23] LABS: Heparin anti-factor XA UFH 0.88 IU/mL (0.30-0.70)
[2022-02-10 12:24] LABS: INR 1.5; Prothrombin Time 16.4 Seconds (9.4-12.1)
[2022-02-11 00:52] LABS: Red Blood Count 3.79 M/mcL (3.82-4.97)
[2022-02-11 00:53] LABS: Basophils # 0.1 K/mcL (0.0-0.2); Basophils % 1.2 %; Eosinophils # 0.6 K/mcL (0.0-0.6); Eosinophils % 6.9 %; Hematocrit 35.5 % (35.3-44.9); Hemoglobin 11.4 g/dL (11.5-15.4); Immature Granulocytes % 0.2 % (0-4); Immature Platelets 5.9 % (1.1-6.1); Lymphocytes # 2.4 K/mcL (0.6-4.6); Mean Corpuscular HGB Conc 32.1 g/dL (31.6-35.5); Mean Corpuscular Hemoglobin 30.1 pg (28.0-33.3); Mean Corpuscular Volume 93.7 fL (83.0-100.0); Mean Platelet Volume 12.9 fL (9.4-12.4); Monocytes % 10.8 %; Red Cell Distribution Width 17.2 % (11.5-14.5); Segmented Neutrophils % 54.9 %; White Blood Count 9.1 K/mcL (4.3-11.1)
[2022-02-11 01:03] LABS: Platelet Count 96 K/mcL (140-400)
[2022-02-11 01:09] LABS: Calcium 8.7 mg/dL (8.6-10.3); Potassium 3.9 mEq/L (3.5-5.1)
[2022-02-11 03:24] LABS: Estimated Average Glucose 114 mg/dl; Hemoglobin A1C 5.6 %
[2022-02-11] MEDS: Ampicillin 1,000 MG in 0.9 % Sodium Chloride Mini Bag 100 ML IVPB SCH ×5 (03:28→21:15)
[2022-02-11] MEDS: Lactobacillus 1 EACH CAP.SPRINK PO SCH ×2 (08:01→21:17)
[2022-02-11] MEDS: amLODIPine 5 MG TABLET PO SCH (08:01)
[2022-02-11] MEDS: Aspirin Enteric Coated 81 MG Tablet PO SCH (08:01)
[2022-02-11] MEDS: Insulin LISPRO 300 UNITS/3 ML VIAL SUBQ SCH ×4 (08:01→19:59)
[2022-02-11] MEDS: Heparin 25,000UNIT/250ML 1/2NS 25,000 UNIT/250 ML IV.SOLN IVC SCH (09:33)
[2022-02-11] MEDS: Apixaban 5 MG TABLET PO SCH ×2 (10:16→21:17)
[2022-02-11] MEDS: hydroCHLOROthiazide 25 MG TABLET PO SCH (12:09)
[2022-02-11] MEDS: Spironolactone 25 MG TABLET PO SCH (12:09)
[2022-02-12] MEDS: Ampicillin 1,000 MG in 0.9 % Sodium Chloride Mini Bag 100 ML IVPB SCH ×3 (00:01→09:27)
[2022-02-12 02:11] LABS: Hemoglobin 11.5 g/dL (11.5-15.4); Immature Granulocytes % 0.2 % (0-4); Red Cell Distribution Width 17.3 % (11.5-14.5)
[2022-02-12 02:13] LABS: Basophils # 0.1 K/mcL (0.0-0.2); Basophils % 1.5 %; Eosinophils # 0.6 K/mcL (0.0-0.6); Eosinophils % 6.9 %; Lymphocytes # 2.1 K/mcL (0.6-4.6); Lymphocytes % 24.6 %; Mean Corpuscular HGB Conc 32.9 g/dL (31.6-35.5); Mean Corpuscular Hemoglobin 30.2 pg (28.0-33.3); Mean Corpuscular Volume 91.9 fL (83.0-100.0); Mean Platelet Volume 13.3 fL (9.4-12.4); Monocytes # 1.1 K/mcL (0.0-1.3); Monocytes % 12.6 %; Neutrophils # 4.6 K/mcL (1.6-8.9); Platelet Count 108 K/mcL (140-400); Red Blood Count 3.81 M/mcL (3.82-4.97); Segmented Neutrophils % 54.2 %; White Blood Count 8.4 K/mcL (4.3-11.1)
[2022-02-12 02:43] LABS: Calcium 8.5 mg/dL (8.6-10.3); Potassium 3.9 mEq/L (3.5-5.1)
[2022-02-12 04:10] VITALS: BP 142/50; PULSE 61; TEMP 97.4; O2SAT 97
[2022-02-12] MEDS: Lactobacillus 1 EACH CAP.SPRINK PO SCH (09:25)
[2022-02-12] MEDS: Spironolactone 25 MG TABLET PO SCH (09:25)
[2022-02-12] MEDS: Apixaban 5 MG TABLET PO SCH (09:25)
[2022-02-12] MEDS: hydroCHLOROthiazide 25 MG TABLET PO SCH (09:26)
[2022-02-12] MEDS: amLODIPine 5 MG TABLET PO SCH (09:26)
[2022-02-12] MEDS: Aspirin Enteric Coated 81 MG Tablet PO SCH (09:27)
[2022-02-12] MEDS: Insulin LISPRO 300 UNITS/3 ML VIAL SUBQ SCH (09:36)
== END 2022-02-12 11:41 | disposition home or self-care (01) | DRG 281 ==
LOC: EMEROOARM 14:32 → 3BNU 14:32 → SUATTDRO 22:18 → 3BNU 23:04
PROVIDERS: ADMIT Internal Medicine; ATTEND Registered Nurse

== ENCOUNTER 2022-02-22 06:07 | Inpatient (IN) ==
[2022-02-22] MEDS ORDERED: 0.9 % Sodium Chloride 1,000 ML ONE ×2 (06:30→07:47)
[2022-02-22] MEDS ORDERED: 0.9 % Sodium Chloride 250 ML ONE (06:36)
[2022-02-22] MEDS ORDERED: Vancomycin 1,000 MG VIAL ONE (06:36)
[2022-02-22] MEDS ORDERED: NiCARdipine 2.5 MG/10 ML Syringe IVPB ONE (06:39)
[2022-02-22 07:15] LABS: Bacteria,Urine Few per hpf (None-Few); Bilirubin,Urine Negative (Negative); Blood,Urine Trace (Negative); Clarity,Urine Clear (Clear); Color,Urine Yellow (Yellow); Glucose,Urine (UA) Normal (Normal); Ketones,Urine Negative (Negative); Leukocyte Esterase,Urine Small (Negative); Mucus,Urine Few per lpf (None-Few); Nitrite,Urine Negative (Negative); Protein,Urine Trace mg/dL (Neg-Trace); Specific Gravity,Urine 1.016 (1.010-1.025); Squamous Epithelial Cell,Urine Few per hpf (None-Few)
[2022-02-22] MEDS ORDERED: Ondansetron 4 MG/2 ML VIAL IVP PRN (07:17)
[2022-02-22] MEDS ORDERED: *HR* FentaNYL (PF) 100 MCG/2 ML VIAL IVP PRN (07:17)
[2022-02-22] MEDS ORDERED: *HR* OxyCODONE Immed Rel 5 MG TABLET PO PRN (07:17)
[2022-02-22] MEDS ORDERED: D5% in Water 100 ML ONE (07:23)
[2022-02-22] MEDS ORDERED: *HR* FentaNYL (PF) 100 MCG/2 ML VIAL ONE (07:24)
[2022-02-22] MEDS ORDERED: Buckersberg's Blood Cardioplegia PF ONE (07:30)
[2022-02-22] MEDS ORDERED: del Nido Cardioplegia Solution PF ONE ×2 (07:30)
[2022-02-22] MEDS ORDERED: Heparin 15,000 UNIT in 0.9 % Sodium Chloride 500 ML IR ONE (07:30)
[2022-02-22] MEDS ORDERED: Norepinephrine 4 MG in 0.9 % Sodium Chloride 250 ML IVC PRN (07:30)
[2022-02-22] MEDS ORDERED: *HR* Heparin 10,000 UNIT/10 ML VIAL ONE (07:31)
[2022-02-22] MEDS ORDERED: Heparin 1,000 UNITS/500 mL 1,500 ML ONE (07:31)
[2022-02-22] MEDS ORDERED: Protamine Sulfate 50 MG/5 ML VIAL IVP ONE (07:31)
[2022-02-22] MEDS ORDERED: 0.9 % Sodium Chloride 2,000 ML ONE (07:32)
[2022-02-22] MEDS ORDERED: Iopamidol - 370 200 ML INFUS..BTL ONE (07:32)
[2022-02-22] MEDS ORDERED: Acetaminophen 325 MG TABLET PO ONE (11:02)
[2022-02-22] MEDS ORDERED: *HR* Propofol 500 MG/50 ML BOTTLE IVP ONE (11:35)
[2022-02-22] MEDS ORDERED: *HR* Propofol 200 MG/20 ML VIAL IVP ONE (11:35)
[2022-02-22] MEDS ORDERED: *HR* Heparin 5,000 UNIT/ML VIAL IVP PRN ×2 (12:37)
[2022-02-22] MEDS ORDERED: Heparin 25,000UNIT/250ML 1/2NS 25,000 UNIT/250 ML IV.SOLN IVC SCH ×2 (12:45)
[2022-02-22 13:39] LABS: Red Cell Distribution Width 17.4 % (11.5-14.5)
[2022-02-22 13:41] LABS: Hematocrit 36.7 % (35.3-44.9); Hemoglobin 11.8 g/dL (11.5-15.4); Immature Platelets 8.7 % (1.1-6.1); Mean Corpuscular HGB Conc 32.2 g/dL (31.6-35.5); Mean Corpuscular Hemoglobin 30.1 pg (28.0-33.3); Mean Corpuscular Volume 93.6 fL (83.0-100.0); Mean Platelet Volume 13.4 fL (9.4-12.4); Red Blood Count 3.92 M/mcL (3.82-4.97); White Blood Count 8.2 K/mcL (4.3-11.1)
[2022-02-22 13:46] LABS: Heparin anti-factor XA UFH < 0.04 IU/mL (0.30-0.70); INR 1.3; Prothrombin Time 14.5 Seconds (9.4-12.1)
[2022-02-22 13:48] LABS: Activated Partial Thrombo Time 41.3 Seconds (26.0-36.0)
[2022-02-22] MEDS: amLODIPine 5 MG TABLET PO SCH (17:31)
[2022-02-22] MEDS: hydroCHLOROthiazide 25 MG TABLET PO SCH (17:31)
[2022-02-22] MEDS: Spironolactone 25 MG TABLET PO SCH (17:31)
[2022-02-22] MEDS ORDERED: Iopamidol - 370 500 ML MLS IVP ONE (19:53)
[2022-02-22 20:44] LABS: INR 1.3; Prothrombin Time 14.7 Seconds (9.4-12.1)
[2022-02-23 03:40] LABS: Calcium 8.1 mg/dL (8.6-10.3); Potassium 4.1 mEq/L (3.5-5.1)
[2022-02-23 04:28] LABS: INR 1.4; Prothrombin Time 15.1 Seconds (9.4-12.1)
[2022-02-23] MEDS: hydroCHLOROthiazide 25 MG TABLET PO SCH (08:46)
[2022-02-23] MEDS: Spironolactone 25 MG TABLET PO SCH (08:46)
[2022-02-23] MEDS: amLODIPine 5 MG TABLET PO SCH (08:46)
[2022-02-23] MEDS: Aspirin Enteric Coated 81 MG Tablet PO SCH (08:47)
[2022-02-23] MEDS ORDERED: AMLODIPINE BESYLATE 2.5 MG PO SCH (09:00)
[2022-02-23] MEDS ORDERED: HYDROCHLOROTHIAZIDE 12.5 MG PO SCH (09:00)
[2022-02-23] MEDS ORDERED: Spironolactone 25 MG TABLET PO SCH (09:00)
[2022-02-23] MEDS ORDERED: NON-FORMULARY MEDICATION 1 EACH EACH (Biotin 1,000 MCG Tab.Chew) PO SCH (09:00)
[2022-02-23 19:14] LABS: Basophils % 1.1 %; Mean Corpuscular Volume 92.9 fL (83.0-100.0); Monocytes % 12.9 %; Red Blood Count 3.66 M/mcL (3.82-4.97)
[2022-02-23 19:16] LABS: Basophils # 0.1 K/mcL (0.0-0.2); Eosinophils # 0.4 K/mcL (0.0-0.6); Eosinophils % 3.9 %; Immature Granulocytes % 0.4 % (0-4); Immature Platelets 9.1 % (1.1-6.1); Lymphocytes # 2.3 K/mcL (0.6-4.6); Lymphocytes % 21.5 %; Mean Corpuscular HGB Conc 32.4 g/dL (31.6-35.5); Mean Corpuscular Hemoglobin 30.1 pg (28.0-33.3); Mean Platelet Volume 13.3 fL (9.4-12.4); Monocytes # 1.4 K/mcL (0.0-1.3); Neutrophils # 6.3 K/mcL (1.6-8.9); Red Cell Distribution Width 17.3 % (11.5-14.5); Segmented Neutrophils % 60.2 %; White Blood Count 10.5 K/mcL (4.3-11.1)
[2022-02-23 19:29] LABS: Platelet Count 58 K/mcL (140-400)
[2022-02-24 05:21] LABS: Hemoglobin 10.6 g/dL (11.5-15.4); Red Cell Distribution Width 17.2 % (11.5-14.5)
[2022-02-24 05:23] LABS: Hematocrit 32.4 % (35.3-44.9); Immature Platelets 7.2 % (1.1-6.1); Mean Corpuscular HGB Conc 32.7 g/dL (31.6-35.5); Mean Corpuscular Hemoglobin 30.5 pg (28.0-33.3); Mean Corpuscular Volume 93.1 fL (83.0-100.0); Mean Platelet Volume 12.8 fL (9.4-12.4); Red Blood Count 3.48 M/mcL (3.82-4.97)
[2022-02-24 06:58] LABS: Calcium 8.2 mg/dL (8.6-10.3); Magnesium 1.4 mg/dL (1.6-2.6); Potassium 4.2 mEq/L (3.5-5.1)
[2022-02-24] MEDS ORDERED: Iopamidol - 300 100 ML INFUS..BTL ONE (07:13)
[2022-02-24] MEDS ORDERED: Heparin 1,000 UNITS/500 mL 500 ML ONE ×2 (07:13→08:46)
[2022-02-24] MEDS ORDERED: *HR* Heparin 10,000 UNIT/10 ML VIAL ONE (07:13)
[2022-02-24] MEDS ORDERED: 0.9 % Sodium Chloride 1,000 ML ONE ×2 (07:13→07:14)
[2022-02-24] MEDS ORDERED: *HR* Midazolam HCl 2 MG/2 ML VIAL ONE ×2 (07:28→08:29)
[2022-02-24] MEDS ORDERED: *HR* FentaNYL (PF) 100 MCG/2 ML VIAL ONE (07:28)
[2022-02-24] MEDS ORDERED: Nitroglycerin 1,000 MCG/5 ML VIAL IV ONE (09:16)
[2022-02-24] MEDS ORDERED: Ondansetron 4 MG/2 ML VIAL ONE (09:23)
[2022-02-24] MEDS ORDERED: 0.9 % Sodium Chloride 1,000 ML IVC SCH (10:45)
[2022-02-24] MEDS ORDERED: CeFAZolin 2,000 MG/120 ML BAG IVPB PRN (14:04)
[2022-02-24] MEDS: hydroCHLOROthiazide 25 MG TABLET PO SCH (14:43)
[2022-02-24] MEDS: Aspirin Enteric Coated 81 MG Tablet PO SCH (14:44)
[2022-02-24] MEDS: Spironolactone 25 MG TABLET PO SCH (14:44)
[2022-02-24] MEDS: amLODIPine 5 MG TABLET PO SCH (14:44)
[2022-02-24] MEDS ORDERED: ceFAZolin 1,000 MG, Sodium Chloride IRRigation 1,000 ML IR ONE (15:05)
[2022-02-24] MEDS ORDERED: *HR* Heparin 5,000 UNIT/ML VIAL IVP PRN (17:34)
[2022-02-24] MEDS ORDERED: Heparin 25,000UNIT/250ML 1/2NS 25,000 UNIT/250 ML IV.SOLN IVC SCH (17:45)
[2022-02-24 18:16] LABS: Hematocrit 35.1 % (35.3-44.9); Hemoglobin 11.3 g/dL (11.5-15.4); Immature Platelets 7.9 % (1.1-6.1); Mean Corpuscular HGB Conc 32.2 g/dL (31.6-35.5); Mean Corpuscular Hemoglobin 30.5 pg (28.0-33.3); Mean Corpuscular Volume 94.6 fL (83.0-100.0); Mean Platelet Volume 13.1 fL (9.4-12.4); Red Blood Count 3.71 M/mcL (3.82-4.97); Red Cell Distribution Width 17.2 % (11.5-14.5); White Blood Count 8.8 K/mcL (4.3-11.1)
[2022-02-24 18:21] LABS: Heparin anti-factor XA UFH < 0.04 IU/mL (0.30-0.70)
[2022-02-24 18:22] LABS: INR 1.3; Prothrombin Time 14.2 Seconds (9.4-12.1)
[2022-02-25 03:51] LABS: Hemoglobin 10.3 g/dL (11.5-15.4); Immature Granulocytes % 0.3 % (0-4); Mean Corpuscular Hemoglobin 30.2 pg (28.0-33.3); Red Blood Count 3.41 M/mcL (3.82-4.97)
[2022-02-25 03:53] LABS: Basophils # 0.1 K/mcL (0.0-0.2); Basophils % 1.1 %; Eosinophils # 0.5 K/mcL (0.0-0.6); Eosinophils % 4.8 %; Hematocrit 31.6 % (35.3-44.9); Immature Platelets 8.3 % (1.1-6.1); Mean Corpuscular HGB Conc 32.6 g/dL (31.6-35.5); Mean Corpuscular Volume 92.7 fL (83.0-100.0); Mean Platelet Volume 12.9 fL (9.4-12.4); Monocytes # 1.3 K/mcL (0.0-1.3); Monocytes % 12.9 %; Neutrophils # 6.2 K/mcL (1.6-8.9); Segmented Neutrophils % 60.9 %; White Blood Count 10.1 K/mcL (4.3-11.1)
[2022-02-25 04:03] LABS: BUN/Creatinine Ratio 22 (6-26); Blood Urea Nitrogen 28 mg/dL (8-23)
[2022-02-25 04:04] LABS: Calcium 7.7 mg/dL (8.6-10.3); Potassium 4.4 mEq/L (3.5-5.1)
[2022-02-25 04:11] LABS: Platelet Count 61 K/mcL (140-400)
[2022-02-25] MEDS ORDERED: Furosemide 40 MG/4 ML VIAL IVP ONE (08:38)
[2022-02-25] MEDS: Spironolactone 25 MG TABLET PO SCH (09:35)
[2022-02-25] MEDS: amLODIPine 5 MG TABLET PO SCH (09:35)
[2022-02-25] MEDS: hydroCHLOROthiazide 25 MG TABLET PO SCH (09:35)
[2022-02-25] MEDS: Aspirin Enteric Coated 81 MG Tablet PO SCH (09:35)
[2022-02-25] MEDS: Apixaban 5 MG TABLET PO SCH (20:29)
[2022-02-26 05:45] LABS: Hematocrit 33.9 % (35.3-44.9); Hemoglobin 11.1 g/dL (11.5-15.4)
[2022-02-26 05:46] LABS: Basophils # 0.1 K/mcL (0.0-0.2); Basophils % 0.9 %; Eosinophils # 0.2 K/mcL (0.0-0.6); Eosinophils % 2.3 %; Hematocrit 33.7 % (35.3-44.9); Hemoglobin 11.1 g/dL (11.5-15.4); Immature Granulocytes % 0.4 % (0-4); Lymphocytes % 10.9 %; Mean Corpuscular HGB Conc 32.9 g/dL (31.6-35.5); Mean Corpuscular Hemoglobin 30.2 pg (28.0-33.3); Mean Corpuscular Volume 91.6 fL (83.0-100.0); Mean Platelet Volume 12.4 fL (9.4-12.4); Monocytes # 0.7 K/mcL (0.0-1.3); Monocytes % 8.1 %; Platelet Count 76 K/mcL (140-400); Red Blood Count 3.68 M/mcL (3.82-4.97); Red Cell Distribution Width 16.9 % (11.5-14.5); Segmented Neutrophils % 77.4 %; White Blood Count 9.1 K/mcL (4.3-11.1)
[2022-02-26 06:05] LABS: Calcium 8.1 mg/dL (8.6-10.3)
[2022-02-26] MEDS: Apixaban 5 MG TABLET PO SCH ×2 (10:17→20:07)
[2022-02-26] MEDS: Aspirin Enteric Coated 81 MG Tablet PO SCH (10:17)
[2022-02-26] MEDS: amLODIPine 5 MG TABLET PO SCH (10:18)
[2022-02-26] MEDS: hydroCHLOROthiazide 25 MG TABLET PO SCH (10:19)
[2022-02-26] MEDS: Spironolactone 25 MG TABLET PO SCH (10:19)
[2022-02-26 17:00] LABS: Bacteria,Urine Few per hpf (None-Few); Bilirubin,Urine Negative (Negative); Blood,Urine Moderate (Negative); Clarity,Urine Clear (Clear); Color,Urine Yellow (Yellow); Glucose,Urine (UA) Normal (Normal); Ketones,Urine Negative (Negative); Leukocyte Esterase,Urine Large (Negative); Mucus,Urine Few per lpf (None-Few); Nitrite,Urine Negative (Negative); PH,Urine 6.5 pH Units (5.0-8.0); Protein,Urine 30 mg/dL (Neg-Trace); RBC,Urine 15-30 per hpf (0-3); Specific Gravity,Urine 1.021 (1.010-1.025); Squamous Epithelial Cell,Urine Few per hpf (None-Few); WBC,Urine 30-50 per hpf (0-3)
[2022-02-27] MEDS: Spironolactone 25 MG TABLET PO SCH (09:17)
[2022-02-27] MEDS: Aspirin Enteric Coated 81 MG Tablet PO SCH (09:17)
[2022-02-27] MEDS: Apixaban 5 MG TABLET PO SCH ×2 (09:18→20:32)
[2022-02-27] MEDS: amLODIPine 5 MG TABLET PO SCH (09:18)
[2022-02-27] MEDS: hydroCHLOROthiazide 25 MG TABLET PO SCH (09:18)
[2022-02-28 09:06] LABS: Basophils # 0.1 K/mcL (0.0-0.2); Basophils % 1.3 %; Eosinophils # 0.5 K/mcL (0.0-0.6); Eosinophils % 5.5 %; Hematocrit 33.6 % (35.3-44.9); Hemoglobin 11.2 g/dL (11.5-15.4); Immature Granulocytes % 0.2 % (0-4); Lymphocytes % 22.4 %; Mean Corpuscular HGB Conc 33.3 g/dL (31.6-35.5); Mean Corpuscular Hemoglobin 29.7 pg (28.0-33.3); Mean Corpuscular Volume 89.1 fL (83.0-100.0); Mean Platelet Volume 12.1 fL (9.4-12.4); Monocytes # 1.1 K/mcL (0.0-1.3); Monocytes % 11.1 %; Neutrophils # 5.7 K/mcL (1.6-8.9); Red Blood Count 3.77 M/mcL (3.82-4.97); Red Cell Distribution Width 16.4 % (11.5-14.5); Segmented Neutrophils % 59.5 %; White Blood Count 9.6 K/mcL (4.3-11.1)
[2022-02-28 09:07] LABS: Lymphocytes # 2.2 K/mcL (0.6-4.6); Platelet Count 65 K/mcL (140-400)
[2022-02-28] MEDS: amLODIPine 5 MG TABLET PO SCH (09:18)
[2022-02-28] MEDS: hydroCHLOROthiazide 25 MG TABLET PO SCH (09:19)
[2022-02-28] MEDS: Spironolactone 25 MG TABLET PO SCH (09:19)
[2022-02-28] MEDS: Apixaban 5 MG TABLET PO SCH ×2 (09:20→20:19)
[2022-02-28] MEDS: Aspirin Enteric Coated 81 MG Tablet PO SCH (09:20)
[2022-02-28 09:21] LABS: Calcium 8.2 mg/dL (8.6-10.3)
[2022-02-28] MEDS: cefTRIAXone 1,000 MG in 0.9 % Sodium Chloride Mini Bag 100 ML IVPB SCH (11:35)
[2022-02-28] MEDS ORDERED: amLODIPine 5 MG TABLET PO ONE (13:08)
[2022-02-28] MEDS: Furosemide 40 MG TABLET PO SCH (16:51)
[2022-03-01 05:43] LABS: Calcium 8.5 mg/dL (8.6-10.3); Potassium 3.8 mEq/L (3.5-5.1)
[2022-03-01] MEDS: hydroCHLOROthiazide 25 MG TABLET PO SCH (09:18)
[2022-03-01] MEDS: amLODIPine 5 MG TABLET PO SCH (09:19)
[2022-03-01] MEDS: Apixaban 5 MG TABLET PO SCH (09:19)
[2022-03-01] MEDS: Aspirin Enteric Coated 81 MG Tablet PO SCH (09:19)
[2022-03-01] MEDS: Furosemide 40 MG TABLET PO SCH (09:19)
[2022-03-01] MEDS: cefTRIAXone 1,000 MG in 0.9 % Sodium Chloride Mini Bag 100 ML IVPB SCH (09:19)
[2022-03-01] MEDS: Spironolactone 25 MG TABLET PO SCH (09:19)
[2022-03-02] MEDS: Apixaban 5 MG TABLET PO SCH ×2 (00:17→08:05)
[2022-03-02 06:55] VITALS: TEMP 98.2
[2022-03-02] MEDS: hydroCHLOROthiazide 25 MG TABLET PO SCH (08:05)
[2022-03-02] MEDS: Furosemide 40 MG TABLET PO SCH (08:05)
[2022-03-02] MEDS: Spironolactone 25 MG TABLET PO SCH (08:05)
[2022-03-02] MEDS: amLODIPine 5 MG TABLET PO SCH (08:05)
[2022-03-02] MEDS: Aspirin Enteric Coated 81 MG Tablet PO SCH (08:06)
[2022-03-02] MEDS: cefTRIAXone 1,000 MG in 0.9 % Sodium Chloride Mini Bag 100 ML IVPB SCH (08:06)
[2022-03-02] MEDS ORDERED: Moderna Covid-19 Vaccine 100MCG/0.5mL IM ONE (13:09)
[2022-03-02 16:14] VITALS: BP 136/30; PULSE 69; O2SAT 99
== END 2022-03-02 16:52 | DRG 267 ==
LOC: INVDIALAB 06:07 → 2NNU 11:34
PROVIDERS: ADMIT Thoracic Surgery (Cardiothoracic Vascular Surgery); ATTEND Thoracic Surgery (Cardiothoracic Vascular Surgery)

== ENCOUNTER 2022-03-05 13:57 | Inpatient (IN) ==
[2022-03-05 15:17] LABS: Bilirubin,Urine Negative (Negative); Blood,Urine Small (Negative); Clarity,Urine Clear (Clear); Color,Urine Light-Yellow (Yellow); Glucose,Urine (UA) Normal (Normal); Hyaline Casts,Urine Moderate per lpf (None Seen); Ketones,Urine Negative (Negative); Leukocyte Esterase,Urine Large (Negative); Mucus,Urine Few per lpf (None-Few); Nitrite,Urine Negative (Negative); PH,Urine 6.5 pH Units (5.0-8.0); Protein,Urine Negative (Neg-Trace); RBC,Urine 15-30 per hpf (0-3); Specific Gravity,Urine 1.009 (1.010-1.025); Squamous Epithelial Cell,Urine Few per hpf (None-Few); Urobilinogen,Urine Normal (Normal); WBC,Urine 30-50 per hpf (0-3)
[2022-03-05] MEDS ORDERED: Piperacillin/Tazobactam 3.375 GM in 0.9 % Sodium Chloride Mini Bag 100 ML IVPB ONE (15:21)
[2022-03-05 15:26] LABS: Basophils # 0.1 K/mcL (0.0-0.2); Basophils % 1.2 %; Eosinophils # 0.5 K/mcL (0.0-0.6); Eosinophils % 5.2 %; Hematocrit 36.1 % (35.3-44.9); Hemoglobin 12.2 g/dL (11.5-15.4); Immature Granulocytes % 0.3 % (0-4); Immature Platelets 9.9 % (1.1-6.1); Lymphocytes # 1.9 K/mcL (0.6-4.6); Lymphocytes % 18.3 %; Mean Corpuscular HGB Conc 33.8 g/dL (31.6-35.5); Mean Corpuscular Volume 88.7 fL (83.0-100.0); Mean Platelet Volume 13.1 fL (9.4-12.4); Monocytes # 0.9 K/mcL (0.0-1.3); Monocytes % 8.6 %; Neutrophils # 6.9 K/mcL (1.6-8.9); Platelet Count 93 K/mcL (140-400); Red Blood Count 4.07 M/mcL (3.82-4.97); Red Cell Distribution Width 15.6 % (11.5-14.5); Segmented Neutrophils % 66.4 %; White Blood Count 10.4 K/mcL (4.3-11.1)
[2022-03-05 15:31] LABS: INR 1.9; Prothrombin Time 21.4 Seconds (9.4-12.1)
[2022-03-05 15:34] LABS: Activated Partial Thrombo Time 40.7 Seconds (26.0-36.0)
[2022-03-05 15:37] LABS: Calcium 8.3 mg/dL (8.6-10.3); Potassium 3.9 mEq/L (3.5-5.1)
[2022-03-05 15:40] LABS: Troponin I 0.05 ng/mL (< 0.04)
[2022-03-05] MEDS ORDERED: Ringers Solution, Lactated 1,000 ML IVC ONE (16:00)
[2022-03-05] MEDS ORDERED: Acetaminophen 325 MG TABLET PO PRN (16:39)
[2022-03-05] MEDS ORDERED: Naloxone 0.4 MG/ML INJ IVP PRN (16:39)
[2022-03-05] MEDS ORDERED: *HR* Dextrose 50 % in Water (Syg) 50 ML SYRINGE IVP PRN (17:41)
[2022-03-05] MEDS ORDERED: D5% in Water 1,000 ML IVC PRN (17:41)
[2022-03-05] MEDS ORDERED: Dextrose Gel 15 GM/37.5 ML TUBE PO PRN ×2 (17:41)
[2022-03-05] MEDS: Insulin LISPRO 300 UNITS/3 ML VIAL SUBQ SCH (22:08)
[2022-03-06] MEDS: Piperacillin/Tazobactam 3.375 GM in 0.9 % Sodium Chloride Mini Bag 100 ML IVPB SCH ×3 (00:08→16:56)
[2022-03-06 01:34] LABS: Immature Granulocytes % 0.3 % (0-4); Red Cell Distribution Width 15.5 % (11.5-14.5)
[2022-03-06 01:35] LABS: Basophils # 0.1 K/mcL (0.0-0.2); Basophils % 1.2 %; Eosinophils # 0.5 K/mcL (0.0-0.6); Eosinophils % 5.3 %; Hematocrit 31.6 % (35.3-44.9); Hemoglobin 10.8 g/dL (11.5-15.4); Lymphocytes # 2.4 K/mcL (0.6-4.6); Lymphocytes % 24.1 %; Mean Corpuscular HGB Conc 34.2 g/dL (31.6-35.5); Mean Corpuscular Hemoglobin 30.1 pg (28.0-33.3); Mean Platelet Volume 13.1 fL (9.4-12.4); Monocytes # 1.1 K/mcL (0.0-1.3); Monocytes % 11.5 %; Red Blood Count 3.59 M/mcL (3.82-4.97); Segmented Neutrophils % 57.6 %; White Blood Count 9.8 K/mcL (4.3-11.1)
[2022-03-06 01:37] LABS: Neutrophils # 5.6 K/mcL (1.6-8.9); Platelet Count 77 K/mcL (140-400)
[2022-03-06 01:55] LABS: Calcium 7.7 mg/dL (8.6-10.3); Potassium 4.2 mEq/L (3.5-5.1)
[2022-03-06] MEDS: Insulin LISPRO 300 UNITS/3 ML VIAL SUBQ SCH ×4 (07:52→19:33)
[2022-03-06] MEDS: amLODIPine 5 MG TABLET PO SCH (08:05)
[2022-03-06] MEDS: Cholecalciferol (D-3) 1,000 UNIT (25MCG) TABLET PO SCH (08:05)
[2022-03-06] MEDS: Apixaban 5 MG TABLET PO SCH ×2 (08:05→19:40)
[2022-03-06] MEDS: Aspirin Enteric Coated 81 MG Tablet PO SCH (08:06)
[2022-03-06] MEDS ORDERED: NON-FORMULARY MEDICATION 1 EACH EACH (Biotin 1,000 MCG Tab.Chew) PO SCH (09:00)
[2022-03-07] MEDS: Piperacillin/Tazobactam 3.375 GM in 0.9 % Sodium Chloride Mini Bag 100 ML IVPB SCH ×2 (00:36→08:27)
[2022-03-07 02:08] LABS: Red Cell Distribution Width 15.5 % (11.5-14.5)
[2022-03-07 02:10] LABS: Basophils # 0.1 K/mcL (0.0-0.2); Basophils % 1.1 %; Eosinophils # 0.4 K/mcL (0.0-0.6); Eosinophils % 4.9 %; Hematocrit 30.6 % (35.3-44.9); Hemoglobin 10.4 g/dL (11.5-15.4); Immature Granulocytes % 0.5 % (0-4); Immature Platelets 7.3 % (1.1-6.1); Lymphocytes # 2.4 K/mcL (0.6-4.6); Lymphocytes % 26.8 %; Mean Corpuscular Hemoglobin 30.1 pg (28.0-33.3); Mean Corpuscular Volume 88.4 fL (83.0-100.0); Mean Platelet Volume 13.2 fL (9.4-12.4); Monocytes # 0.9 K/mcL (0.0-1.3); Monocytes % 9.8 %; Red Blood Count 3.46 M/mcL (3.82-4.97); Segmented Neutrophils % 56.9 %; White Blood Count 8.8 K/mcL (4.3-11.1)
[2022-03-07 02:11] LABS: Platelet Count 87 K/mcL (140-400)
[2022-03-07 02:30] LABS: Potassium 3.9 mEq/L (3.5-5.1)
[2022-03-07] MEDS: Insulin LISPRO 300 UNITS/3 ML VIAL SUBQ SCH ×3 (08:15→16:17)
[2022-03-07] MEDS: Cholecalciferol (D-3) 1,000 UNIT (25MCG) TABLET PO SCH (08:25)
[2022-03-07] MEDS: Apixaban 5 MG TABLET PO SCH (08:26)
[2022-03-07] MEDS: Aspirin Enteric Coated 81 MG Tablet PO SCH (08:26)
[2022-03-07] MEDS: amLODIPine 5 MG TABLET PO SCH (08:26)
[2022-03-07] MEDS ORDERED: cefTRIAXone 1,000 MG in 0.9 % Sodium Chloride 10 ML IVP SCH ×2 (10:00→13:00)
[2022-03-07] MEDS ORDERED: *HR* Heparin 5,000 UNIT/ML VIAL IVP ONE (10:22)
[2022-03-07] MEDS ORDERED: *HR* Heparin 5,000 UNIT/ML VIAL IVP PRN ×3 (10:22→21:00)
[2022-03-07 11:55] LABS: Hemoglobin 10.8 g/dL (11.5-15.4); Red Cell Distribution Width 15.7 % (11.5-14.5)
[2022-03-07 11:57] LABS: Hematocrit 32.2 % (35.3-44.9); Mean Corpuscular HGB Conc 33.5 g/dL (31.6-35.5); Mean Corpuscular Hemoglobin 30.1 pg (28.0-33.3); Mean Corpuscular Volume 89.7 fL (83.0-100.0); Mean Platelet Volume 12.1 fL (9.4-12.4); Red Blood Count 3.59 M/mcL (3.82-4.97); White Blood Count 8.8 K/mcL (4.3-11.1)
[2022-03-07 12:04] LABS: INR 2.2
[2022-03-07 12:11] LABS: Heparin anti-factor XA UFH > 2.00 IU/mL (0.30-0.70)
[2022-03-07 14:00] LABS: Bilirubin,Urine Negative (Negative); Blood,Urine Moderate (Negative); Clarity,Urine Turbid (Clear); Color,Urine Light-Yellow (Yellow); Glucose,Urine (UA) Normal (Normal); Ketones,Urine Negative (Negative); Leukocyte Esterase,Urine Large (Negative); Nitrite,Urine Negative (Negative); PH,Urine 6.5 pH Units (5.0-8.0); Protein,Urine Negative (Neg-Trace); RBC,Urine 15-30 per hpf (0-3); Specific Gravity,Urine 1.015 (1.010-1.025); Squamous Epithelial Cell,Urine Few per hpf (None-Few); Urobilinogen,Urine Normal (Normal); WBC,Urine 50-100 per hpf (0-3)
[2022-03-07] MEDS ORDERED: Heparin 25,000UNIT/250ML 1/2NS 25,000 UNIT/250 ML IV.SOLN IVC SCH ×2 (21:00)
[2022-03-08] MEDS: Insulin LISPRO 300 UNITS/3 ML VIAL SUBQ SCH ×5 (01:58→21:29)
[2022-03-08 05:38] LABS: Basophils # 0.1 K/mcL (0.0-0.2); Basophils % 1.5 %; Eosinophils # 0.4 K/mcL (0.0-0.6); Eosinophils % 4.5 %; Hematocrit 32.9 % (35.3-44.9); Immature Granulocytes % 0.4 % (0-4); Immature Platelets 7.5 % (1.1-6.1); Lymphocytes % 30.7 %; Mean Corpuscular HGB Conc 33.4 g/dL (31.6-35.5); Mean Corpuscular Hemoglobin 29.9 pg (28.0-33.3); Mean Corpuscular Volume 89.4 fL (83.0-100.0); Monocytes % 10.8 %; Red Blood Count 3.68 M/mcL (3.82-4.97); Red Cell Distribution Width 15.8 % (11.5-14.5); Segmented Neutrophils % 52.1 %; White Blood Count 9.6 K/mcL (4.3-11.1)
[2022-03-08 05:42] LABS: Platelet Count 91 K/mcL (140-400)
[2022-03-08 06:26] LABS: Calcium 7.9 mg/dL (8.6-10.3); Potassium 4.1 mEq/L (3.5-5.1)
[2022-03-08] MEDS: Cholecalciferol (D-3) 1,000 UNIT (25MCG) TABLET PO SCH (08:32)
[2022-03-08] MEDS: Aspirin Enteric Coated 81 MG Tablet PO SCH (08:32)
[2022-03-08] MEDS: amLODIPine 5 MG TABLET PO SCH (08:33)
[2022-03-08] MEDS: Apixaban 5 MG TABLET PO SCH ×2 (08:55→21:30)
[2022-03-09 08:34] LABS: Basophils # 0.1 K/mcL (0.0-0.2); Basophils % 1.3 %; Eosinophils # 0.5 K/mcL (0.0-0.6); Hematocrit 33.5 % (35.3-44.9); Hemoglobin 11.3 g/dL (11.5-15.4); Immature Granulocytes % 0.2 % (0-4); Lymphocytes # 2.4 K/mcL (0.6-4.6); Lymphocytes % 29.6 %; Mean Corpuscular HGB Conc 33.7 g/dL (31.6-35.5); Mean Corpuscular Hemoglobin 30.5 pg (28.0-33.3); Mean Corpuscular Volume 90.3 fL (83.0-100.0); Mean Platelet Volume 12.4 fL (9.4-12.4); Monocytes # 0.8 K/mcL (0.0-1.3); Monocytes % 9.5 %; Neutrophils # 4.4 K/mcL (1.6-8.9); Platelet Count 109 K/mcL (140-400); Red Blood Count 3.71 M/mcL (3.82-4.97); Red Cell Distribution Width 16.1 % (11.5-14.5); Segmented Neutrophils % 53.4 %; White Blood Count 8.2 K/mcL (4.3-11.1)
[2022-03-09 08:53] LABS: Calcium 8.1 mg/dL (8.6-10.3)
[2022-03-09] MEDS: Aspirin Enteric Coated 81 MG Tablet PO SCH (08:56)
[2022-03-09] MEDS: Cholecalciferol (D-3) 1,000 UNIT (25MCG) TABLET PO SCH (08:56)
[2022-03-09] MEDS: Apixaban 5 MG TABLET PO SCH (08:56)
[2022-03-09] MEDS: amLODIPine 5 MG TABLET PO SCH (08:56)
[2022-03-09] MEDS: Insulin LISPRO 300 UNITS/3 ML VIAL SUBQ SCH ×2 (08:57→11:41)
[2022-03-09] MEDS ORDERED: Fosfomycin Tromethamine 3 GM Packet PO ONE (09:30)
[2022-03-09 11:41] VITALS: BP 154/67; PULSE 61; TEMP 97.5; O2SAT 100
== END 2022-03-09 12:51 | disposition home health service (06) | DRG 682 ==
LOC: EMEROOARM 13:57 → 2ANU 13:57 → SUATTDRO 17:11 → 2ANU 18:01 → SUATTDRO 03-06 17:04
PROVIDERS: ADMIT Pharmacist; ATTEND Internal Medicine